=== PATIENT | male | born 1990 | race Caucasian/White ===

== ENCOUNTER 2020-10-16 15:03 | Inpatient (IN) | payer MEDICAID ==
[~2020-10-16] VITALS: Ht 167.6 cm; Wt 75.8 kg
[2020-10-16] MEDS ORDERED: LORazepam 1MG TABLET PO PRN (15:30)
[2020-10-16] MEDS ORDERED: POLYETHYLENE GLYCOL 17 GM PACKET PO PRN (15:30)
[2020-10-16] MEDS ORDERED: ONDANSETRON ODT 4 MG PO PRN (15:30)
[2020-10-16] MEDS ORDERED: ACETAMINOPHEN 325 MG TABLET PO PRN (15:30)
[2020-10-16] MEDS ORDERED: DIPHENHYDRAMINE 50 MG CAPSULE PO PRN (15:30)
[2020-10-16] MEDS ORDERED: HALOPERIDOL 5 MG TABLET PO PRN (15:30)
[2020-10-16] MEDS ORDERED: BISACODYL 10 MG SUPP PR PRN (15:30)
[2020-10-16] MEDS ORDERED: DOCUSATE 100 MG CAPSULE PO PRN (15:30)
[2020-10-16 16:30] VITALS: BP 112/74
[2020-10-17 07:22] VITALS: BP 118/74
[2020-10-17 10:00] LABS: CHOL/HDL RATIO 3.3; FREE T4 (FREE THYROXINE) 1.05 ng/dL (0.76-1.46); LDL/HDL RATIO 2.1 (0.5-3.0)
[2020-10-17] MEDS: QUETIAPINE 100MG TABLET PO SCH ×2 (14:52→20:07)
[2020-10-17 19:59] VITALS: BP 98/61
[2020-10-18 06:29] LABS: MICROSCOPIC NOT IND
[2020-10-18 07:24] VITALS: BP 118/72
[2020-10-18] MEDS: QUETIAPINE 100MG TABLET PO SCH ×2 (08:41→20:19)
[2020-10-18] MEDS ORDERED: QUET200T4 PO (11:12)
[2020-10-18 19:49] VITALS: BP 108/70
[2020-10-19 07:16] VITALS: BP 105/61
[2020-10-19] MEDS: QUETIAPINE 100MG TABLET PO SCH ×2 (08:06→21:56)
[2020-10-19 19:54] VITALS: BP 95/57
[2020-10-20 07:18] VITALS: BP 136/73
[2020-10-20] MEDS: QUETIAPINE 100MG TABLET PO SCH ×2 (08:57→20:52)
[2020-10-20 19:14] VITALS: BP 109/65
[2020-10-21 07:00] VITALS: BP 113/71
[2020-10-21] MEDS: QUETIAPINE 100MG TABLET PO SCH (08:26)
[2020-10-21] MEDS ORDERED: QUET100T PO (10:43)
== END 2020-10-21 11:04 | disposition home or self-care (01) | DRG 750 ==
LOC: 3E 16:20
PROVIDERS: ADMIT Psychiatry & Neurology Psychosomatic Medicine; ATTEND Psychiatry & Neurology Psychosomatic Medicine
DX: F25.0 Schizoaffective disorder, bipolar type (principal); Z20.828 Contact with and (suspected) exposure to other viral communicable diseases; D72.829 Elevated white blood cell count, unspecified; F12.10 Cannabis abuse, uncomplicated; F15.20 Other stimulant dependence, uncomplicated; Z83.6 Family history of other diseases of the respiratory system; Z82.49 Family history of ischemic heart disease and other diseases of the circulatory system
CPT/HCPCS: 36415; 71045; 80061; 81003; 82140; 84439; 84443; 86803; 87806; 93005; G0475